=== PATIENT | female | born 2000 | race Caucasian/White ===

== ENCOUNTER 2020-06-27 18:12 | Emergency (ER) | payer OTHER | END 2020-06-27 20:37 | disposition home or self-care (01) | LOC: JVIRT 18:12 | DX: Z20.822 Contact with and (suspected) exposure to COVID-19 (principal) | CPT/HCPCS: C9803; Q3014-GT; U0003 ==

== ENCOUNTER 2020-07-05 12:46 | Emergency (ER) | payer OTHER | END 2020-07-05 14:20 | disposition home or self-care (01) | LOC: JVIRT 12:46 | DX: Z11.52 Encounter for screening for COVID-19 (principal) | CPT/HCPCS: G2012-GT ==

== ENCOUNTER 2020-07-07 11:25 | Emergency (ER) | payer OTHER | END 2020-07-07 12:29 | disposition home or self-care (01) | LOC: JVIRT 11:25 | DX: Z11.52 Encounter for screening for COVID-19 (principal) | CPT/HCPCS: C9803; G2012-GT; U0003 ==

== ENCOUNTER 2020-07-10 12:42 | Emergency (ER) | payer OTHER | END 2020-07-10 13:39 | disposition home or self-care (01) | LOC: JVIRT 12:42 | DX: Z20.822 Contact with and (suspected) exposure to COVID-19 (principal) | CPT/HCPCS: C9803; G2012-GT; U0003 ==